=== PATIENT | male | born 1960 | race Hispanic/Latino ===

== ENCOUNTER 2018-03-25 05:30 | Day surgery (SDC) | payer OTHER ==
[~2018-03-25] VITALS: Ht 167.6 cm; Wt 81.1 kg
[~2018-03-25 05:30] MED LIST: FURO40TA5 PO; LACT10SO PO; OMEP-272 PO; PROP10TA10 PO; SPIR100T PO
[2018-03-25] MEDS ORDERED: SODIUM CHLORIDE 0.9% 1000ML 1,000 ML IV ONE (05:40)
[2018-03-25 06:00] VITALS: BP 99/65
[2018-03-25] MEDS ORDERED: PROPOFOL 10 MG/ML 20ML VIAL IV ONE (06:51)
[2018-03-25 07:01] VITALS: BP 92/66
== END 2018-03-25 07:45 | disposition home or self-care (01) ==
LOC: DAH 05:30
PROVIDERS: ATTEND Internal Medicine
DX: I85.00 Esophageal varices without bleeding (principal); K31.89 Other diseases of stomach and duodenum; K29.50 Unspecified chronic gastritis without bleeding; B18.2 Chronic viral hepatitis C; D64.9 Anemia, unspecified; F17.200 Nicotine dependence, unspecified, uncomplicated; J44.9 Chronic obstructive pulmonary disease, unspecified; K70.30 Alcoholic cirrhosis of liver without ascites; E66.3 Overweight; Z68.29 Body mass index [BMI] 29.0-29.9, adult; Z86.010 Personal history of colon polyps; Z79.899 Other long term (current) drug therapy; Z87.11 Personal history of peptic ulcer disease; Z83.3 Family history of diabetes mellitus
CPT/HCPCS: 43239; 82948; 88305; 88312; A4606; J2704; J7030